=== PATIENT | female | born 1940 | race Caucasian/White ===

== ENCOUNTER → 2021-12-10 | Outpatient (CLI) | payer OTHER ==
[~2021-12-10] MED LIST: ACTONEL30 MG PO; ADULT LOW DOSE81 MG PO; CALCIUM 600 +1 EAC1 PO; FISHOIL PO; FOLIC ACID PO; IBUPROFEN 200200 M1 PO; LIPITOR20 MG PO; LISINOPRIL10 MG PO; LOPRESSOR PO; OMEPRAZOLE20 M2 PO; SERTRALINE HCL100 MG PO; VITAMIN B-12500 MCG PO; VITAMIN E400 UNIT PO
--- NOTE | 2021-12-10 14:20 | 2DMMODE ---
[place] [address] 2 D/M-MODE ECHOCARDIOGRAM Name: ROSENDO RIOS Room: [facility] [employer]#: [id number] Admission: 12/10/21 Attend Phys: Titi Alex, Discharge: Date of : 42 Date of Service: 12/10/21 1419 Report #: [id number] THIS REPORT FOR: cc: Xiomy Herbert MD, Pamela MD Holkins,Dequan Kirby MD [facility] ~ APPROVED REPORT Study performed: 12/10/2021 14:11:09 EXAM: Comprehensive 2D, Doppler, and color-flow Echocardiogram Patient Location: Out-Patient BSA: 1.60 HR: 70 bpm BP: 150/88 mmHg Other Information Study Quality: Good Indications Chest Pain 2D Dimensions IVSd: 11.65 (7-11mm) LVOT Diam: 20.16 (18-24mm) LVDd: 30.46 mm PWd: 7.63 (7-11mm) Ascending Ao: 31.04 (22-36mm) LVDs: 19.64 (25-40mm) Aortic Root: 24.55 mm Volumes Left Atrial Volume (Systole) LA ESV Index: 19.10 mL/m2 Aortic Valve AoV Peak Robin.: 1.20 m/s AO Peak Gr.: 5.80 mmHg LVOT Max P.47 mmHg AO Mean Gr.: 3.37 mmHg LVOT Mean P.65 mmHg LVOT Max V: 1.17 m/s AO V2 VTI: 25.96 cm LVOT Mean V: 0.75 m/s SOUTH (VTI): 3.63 cm2 LVOT V1 VTI: 29.52 cm Mitral Valve E/A Ratio: 0.64 [place] [address] 2 D/M-MODE ECHOCARDIOGRAM Name: ROSENDO RIOS [id number] Admission: 12/10/21 Attend Phys: Titi Alex, Discharge: Date of : 42 Date of Service: 12/10/21 1419 Report #: [id number] MV Decel. Time: 298.36 ms MV E Max Robin.: 0.59 m/s MV PHT: 86.52 ms MVA (PHT): 2.54 cm2 TDI E/Lateral E': 5.90 E/Medial E': 7.38 Medial E' Robin.: 0.08 m/s Lateral E' Robin.: 0.10 m/s Pulmonary Valve PV Peak Robin.: 1.08 m/s PV Peak Gr.: 4.65 mmHg Tricuspid Valve RAP Estimate: 5.00 mmHg TR Peak Gr.: 19.47 mmHg RVSP: 24.47 mmHg PA Pressure: 24.47 mmHg Left Ventricle The left ventricle is normal size. There is normal LV segmental wall motion. Borderline concentric left ventricular hypertrophy. Left ventricular systolic function is normal. The left ventricular ejection fraction is within the normal range. LVEF is 60-65%. Grade I - abnormal relaxation pattern. Right Ventricle The right ventricle is normal size. The right ventricular systolic function is normal. Atria The left atrium size is normal. The right atrium size is normal. Aortic Valve Mild aortic valve sclerosis. No aortic regurgitation is present. There is no aortic valvular stenosis. Mitral Valve Mild mitral annular calcification. Mild mitral regurgitation. No evidence of mitral valve stenosis. Tricuspid Valve The tricuspid valve is normal in structure. Mild tricuspid regurgitation[place] [address] 2 D/M-MODE ECHOCARDIOGRAM Name: BLANCAROSENDO Jeannie Room: [facility]#: [id number] Admission: 12/10/21 Attend Phys: Titi Alex, Discharge: Date of : 42 Date of Service: 12/10/21 1419 Report #: [id number] The pulmonary valve is normal in structure. Mild pulmonic regurgitation. Great Vessels The aortic root is normal in size. IVC is normal in size and collapses >50% with inspiration. Pericardium There is no pericardial effusion. <Conclusion> The left ventricle is normal size. Borderline concentric left ventricular hypertrophy. Left ventricular systolic function is normal. The left ventricular ejection fraction is within the normal range. LVEF is 60-65%. Grade I - abnormal relaxation pattern. The right ventricle is normal size. The left atrium size is normal. Mild aortic valve sclerosis. No aortic regurgitation is present. There is no aortic valvular stenosis. Mild mitral annular calcification. Mild mitral regurgitation. The tricuspid valve is normal in structure. Mild tricuspid regurgitation. IVC is normal in size and collapses >50% with inspiration. There is no pericardial effusion. There is normal LV segmental wall motion. <ELECTRONICALLY SIGNED> By: Dequan Ceron MD, FACC 12/10/21 1419 1419 1419 Dequan Ceron MD, FACC /INF
== END ==
LOC: M.CRD 12:48
PROVIDERS: ATTEND Internal Medicine Cardiovascular Disease
DX: I08.3 Combined rheumatic disorders of mitral, aortic and tricuspid valves (principal)